=== PATIENT | male | born 1960 | race Caucasian/White ===

== ENCOUNTER → 2017-01-08 | Day surgery (SDC) | payer OTHER ==
[~2017-01-08] VITALS: Ht 200.7 cm; Wt 108.9 kg
[~2017-01-08] MED LIST: 0; CEPHALEXIN500 M3 PO; OXYCODONE-ACET1 EACH PO; VANCOMYCIN IV
[2017-01-08 14:29] LABS: ABSOLUTE BASOPHIL COUNT 0.1 /CUMM (0.0-0.2); ABSOLUTE EOSINOPHIL COUNT 0.1 /CUMM (0.0-0.7); ABSOLUTE GRANULOCYTE CT 5.9 /CUMM (1.4-6.5); ABSOLUTE LYMPH COUNT 1.8 /CUMM (1.2-3.4); ABSOLUTE MONOCYTE COUNT 0.9 /CUMM (0.10-0.60); BASOPHIL % 0.7 % (0.0-2.0); EOSINOPHIL % 0.8 % (0-5); GRANULOCYTE % 67.5 % (42.2-75.2); MEAN CORPUSCULAR HGB 30.7 PG (27.0-31.0); MEAN CORPUSCULAR HGB CONC 33.6 G/DL (33.0-37.0); MEAN CORPUSCULAR VOLUME 91.3 FL (80.0-94.0); MEAN PLATELET VOLUME 8.1 FL (7.4-10.4); PLATELET COUNT 165 /CUMM (130-400); RBC DISTRIBUTION WIDTH 13.6 % (11.5-14.5); RED BLOOD CELL CT 4.71 /CUMM (4.70-6.10); WHITE BLOOD CELL COUNT 8.7 /CUMM (4.8-10.8)
--- NOTE | 2017-01-08 14:35 | ED UPPER/LOWER EXTREMITY COMPL ---
History of Present Illness General Chief Complaint: General Adult Stated Complaint: S/P ELBOW SURG/SENT BY SURGEON Source: patient Exam Limitations: no limitations Vital Signs & Intake/Output Vital Signs & Intake/Output Vital Signs Date Time Temp Pulse Resp B/P Pulse O2 O2 Flow FiO2 Ox Delivery Rate 01/08 1452 99.0 80 18 130/88 100 Room Air 01/08 1246 97.3 87 16 139/90 97 Room Air Allergies Coded Allergies: Penicillins (UNKNOWN 01/08/17) Triage Note: 56 Y/O MALE STATES HE WAS SENT TO ER BY DR MONTES FOR ? SURGERY. STATES HE HAD ELBOW SURGERY ON 12/03/16 AND HAS HAD INFECTION/COMPLICATIONS SINCE. HAS HAD WOUND VAC ON/OFF WHICH WAS REMOVED ON FRIDAY - HAS BEEN BEING SEEN BY WOUND CENTER, LAST SEEN YESTERDAY. STATES ELBOW IS "WORSE". 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 Triage Nurses Notes Reviewed? yes Onset: Abrupt Duration: week(s):, constant, getting worse Timing: recent history No Modifying Factors: none HPI: 56-year-old male comes into emergency room for evaluation of pain and swelling to his left elbow. Patient had the surgery done at the end of November. Patient had a triceps tendon rupture repair performed by Dr. montes. Patient had a "hole over the wound that developed about a week after the surgery. This past week it has become secondarily infected with drainage. Patient was beeing followed by wound care and had a wound VAC placed. Symptoms have gotten worse. Patient saw orthopedic doctor today who sent him to the emergency room for further evaluation and likely surgery. Denies any fever chills vomiting symptoms. Denies any other associated symptoms currently. (CHAPO FRANK,DARSHAN) Reconcile Medications [0] LABS: WEEKLY CBC, BUN/CR, SEDIMENATION RATE, VANCOMYCIN LEVEL BEGINING 01/17/17 DIAGNOSIS: WOUND INFECTION Oxycodone HCl/Acetaminophen (Oxycodone-Acetaminophen 5-325) 5 MG-325 MG TABLET 1 TAB PO QPM PRN PAIN (Reported) [VANCOMYCIN] 1,500 MG 1 DOSE IV BID INFECTION (JAGJIT CAR,CHRISTIE) Past History Travel History Traveled to [place] past 21 day No Medical History Any Pertinent Medical History? see below for history Neurological: LYME DISEASE EENT: NONE Cardiovascular: NONE Respiratory: NONE Gastrointestinal: NONE Hepatic: NONE Renal: NONE Musculoskeletal: NONE Psychiatric: NONE Endocrine: NONE Blood Disorders: NONE Cancer(s): NONE PLEATER/Reproductive: NONE Surgical History Surgical History: non-contributory Psychosocial History What is your primary language Maldivian Tobacco Use: Current Daily Use Daily Tobacco Use Amount/Type: => 5 Cigarettes daily Family History Hx Contributory? No (DARSHAN VELÁZQUEZ) Review of Systems Review of Systems Constitutional: Reports: no symptoms. EENTM: Reports: no symptoms. Respiratory: Reports: no symptoms. Cardiovascular: Reports: no symptoms. Gastrointestinal/Abdominal: Reports: no symptoms. Genitourinary: Reports: no symptoms. Musculoskeletal: Reports: no symptoms. Skin: Reports: see HPI. Neurological/Psychological: Reports: no symptoms. Hematologic/Endocrine: Reports: no symptoms. Immunological: Reports: no symptoms. All Other Systems: Reviewed and Negative (DARSHAN VELÁZQUEZ) Physical Exam Physical Exam General Appearance: well developed/nourished, mild distress Head: atraumatic Eyes: Bilateral: normal appearance. Ears, Nose, Throat: normal ENT inspection, hearing grossly normal Neck: normal inspection Cardiovascular/Respiratory: no respiratory distress Back: normal inspection Shoulder Left: normal range of motion, normal inspection Elbow Left: erythema, warmth, joint swelling, purulentr discharge, open wound with hole and discharge Hand Left: normal inspection, normal range of motion Neurologic/Tendon: normal sensation, normal motor functions, normal tendon functions, responds to pain, no evidence tendon injury, no pulse deficit Skin: intact, normal color, warm/dry Lymphatic: no anterior cervical cass (DARSHAN VELÁZQUEZ) Progress Differential Diagnosis: arterial insufficiency, cellulitis, compartment syndrome , septic arthritis, sprain, tendon injury Plan of Care: Orders Procedure Date/time Status EXTREMETIES CULTURE 01/08 1431 Active Add-on Test (ER Only) 01/08 1426 Active C-REACTIVE PROTEIN 01/08 1400 Complete BLOOD CULTURE 01/08 1355 Active CBC WITHOUT DIFFERENTIAL 01/08 1355 Complete BASIC METABOLIC PANEL 01/08 1355 Complete Laboratory Tests 01/08/17 1400: Anion Gap 10, Estimated GFR > 60, BUN/Creatinine Ratio 15.7, Glucose 87, Calcium 9.2, C-Reactive Prot, Quant 0.6, CBC w Diff NO MAN DIFF REQ, RBC 4.71, MCV 91.3, MCH 30.7, RDW 13.6, MPV 8.1, Gran % 67.5, Lymphocytes % 20.7, Monocytes % 10.3 H, Eosinophils % 0.8, Basophils % 0.7, Absolute Granulocytes 5.9, Absolute Lymphocytes 1.8, Absolute Monocytes 0.9 H, Absolute Eosinophils 0.1, Absolute Basophils 0.1, PUBS MCHC 33.6 Microbiology 01/08 1431 EXTREMITIE: Culture & Sensitivity - ORD 01/08 1431 EXTREMITIE: Gram Stain - ORD 01/08 1400 BLOOD: Blood Culture - RECD 01/08 1400 BLOOD: Blood Culture - RECD Departure Departure Disposition: STILL A PATIENT Condition: Stable Clinical Impression Primary Impression: Cellulitis and abscess of unspecified site Secondary Impressions: Post-operative infection Referrals: JORGE LACEY MD (PCP/Family) Departure Forms: Customer Survey General Discharge Information Comments 01/08/2017 5:32:[address] Montes was consult. He is going to bring the patient to the OR tonight for an incision and drainage and washout. No antibiotics at this time. OR/GI Note Spoke With: MICHAEL CAR,LANDY ED Treatment Decision: CRIS PRICE requires urgent operative management or an emergent procedure that cannot be performed in the Emergency Room setting. Transport To: [facility] (DARSHAN VELÁZQUEZ) PA/ELECTRONIC CALIBRATION TECHNICIAN Co-Sign Statement Statement: ED Attending supervision documentation- [] I saw and evaluated the patient. I have also reviewed all the pertinent lab results and diagnostic results. I agree with the findings and the plan of care as documented in the PA's/ELECTRONIC CALIBRATION TECHNICIAN's documentation. [X] I have reviewed the ED Record and agree with the PA's/ELECTRONIC CALIBRATION TECHNICIAN's documentation. [] Additions or exceptions (if any) to the PAs/ELECTRONIC CALIBRATION TECHNICIAN's note and plan are summarized below: [] (JAGJIT CAR,CHRISTIE)
[2017-01-08 14:52] VITALS: BP 130/88
--- NOTE | 2017-01-08 21:02 | Operative Report ---
Operative/Inv Procedure Report Surgery Date: 01/08/17 Name of Procedure: 1) I&D left elbow wound: Skin, subcutaneous tissue, deep fascia, and bone. 2) Wound revision including excision of areas of skin breakdown. 3) Application of wound VAC. Pre-Operative Diagnosis: Wound infection left elbow. Post-Operative Diagnosis: Same. Estimated Blood Loss: scant Surgeon/Hide Inspector: MD MICHAEL / MD ARIANNA Anesthesia: laryngeal mask airway Monitors: EKG, blood pressure monitoring, oxygen saturation. IV Fluids: Lactated Ringer's. Implants: None. Urine Output: None. Drains: Wound VAC applied over the suture line (Adaptic over the suture line). Specimens: Portions of skin and subcutaneous tissue and fascia and tendon sent to pathology for histopathological evaluation. Microbiology: Deep wound culture sent to microbiology for Gram stain, culture and sensitivity. Tourniquet: 69 minutes at 275 mmHg. Complications: None known. Condition: Stable. 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 Interestingly, that area of skin breakdown did not involve the actual incision itself and was located about 1.5-2 cm medial to the actual prior surgical incision. The wound appeared to extend quite deeply at that time but was not draining and did not show signs of infection. We tried to manage the soft tissue loss and wound breakdown with wound VAC therapy and with having the patient treated at the [facility] wound care facility. Earlier this week the patient was seen in the office and was noted to have a punctate hole in the skin which was draining purulent material. This punctate hole was located about 3 cm proximal to the original area of skin breakdown and was also offset by a couple of centimeters medial to the prior now very well-healed maturing surgical scar. I expressed that wound and got a couple of drops of purulent drainage followed by blood. The patient was seen per protocol that same day at the [facility] wound care facility after seeing me in the office. The wound was apparently cleaned and then packed. The patient was showering the next day and found that he had lost the wound packing. He therefore went back to the wound care clinic at [facility] where the staff felt that the wound was worsening with increasing fluctuance and drainage and some slight increase in erythema of the skin at the posterior elbow. This was felt to be consistent with a developing progressing infection. Wound cultures were taken. The patient was started on Keflex empirically and was discharged from the wound care facility with instructions to see me today for follow-up. The patient was seen in my office earlier today where I agreed with the assessment of the wound care clinic. I did recommend to the patient that we perform an I&D of the elbow wound with exploration. I did indicate to the patient that I was hopeful that we might be able to perform an I &D of the wound and leave the braided polyester suture material holding the tendon in place and hopefully suppress infection with IV antibiotics allowing his tendon additional time to try to heal back to bone. He was advised that I was hesitant to recommend removing the FiberWire suture material which was the only thing really holding the tendon to bone initially following his repair as I thought that he did not have adequate time for the tendon to predictively heal back to bone. The basic plan was therefore to perform an I&D of the wound and then start the patient on IV antibiotics and take him back electively for removal of the FiberWire suture in about 1 month unless he healed completely without signs of any lingering infection. All the patient's questions were answered at length. He did wish to move forward with surgery today as was recommended. He was sent over to the emergency room at [facility] and arrangements were made for him to undergo surgery this evening. Operative/Procedure Note Note: The patient was brought to the operating room and placed on the operating room table in the supine position. Gen. anesthesia was induced by the anesthesia team. Dressings on the patient's left elbow were taken down. The elbow soft tissues were inspected. There was a small amount of study purulent drainage coming from the small pinhole wound described above. The larger wound which was the initial wound showed skin margins that looked chronically smoothed and not fresh. The deeper tissues at the larger wound did show some signs of filling in that was difficult to tell what type of tissue was in the base of the wound. All bony prominences were well padded. No antibiotics were given. The left upper extremity was then prepped and draped in the usual sterile fashion, in this case using an iodine prep. The original skin wound-scar was marked out on the skin with a skin marker. The 2 new wounds were also marked around the margins with a skin marker. I evaluated where to place the surgical incision and my initial impression was that I would go through the original scar wound and elevate flaps medially and laterally as needed including undermining the medial flap to get over to the medial wounds. I was fearful of dissecting out the wounds individually or dissecting with an incision connecting the wounds for fear that the tissue bridge between these wounds to the original skin wound and scar would be inadequate and devitalized due to loss of vascularity which would contribute to wound breakdown and ongoing wound healing problems. A well-padded sterile tourniquet was applied to the proximal portion of the left arm. The left upper extremity was then wrapped with an Esmarch bandage and then exsanguinated. The tourniquet was then inflated to a pressure 275 mmHg. The majority of the original skin incision was reopened with a #15 scalpel blade. Sharp dissection was continued down through skin and subcutaneous tissues. I did encounter a limited amount of devitalized tissue as I dissected deep to the skin through the subcutaneous tissues down to the underlying tendon. I started to elevate the medial skin flap trying to elevate the flap as thick as possible. A layer of dense to fibrinous exudate was adherent to the undersurface of the deep subcutaneous tissue. This all looked abnormal and I did need to sharply debride this layer of fibrinous exudate as well as areas of fat necrosis and devitalized fat. I was eventually able to undermine and elevate the medial skin flap as far as the above-noted wounds 2 and slightly medial to this as well. In doing this a couple of the FiberWire suture lengths were cut. I therefore needed to remove FiberWire material as best as possible to get the braided polyester material out of the infected bed. There was some devitalization and breakdown of some of the reattached the triceps tendon. This required debridement. Ultimately debridement required excision of about 1/4-1/3 of the previously repaired triceps tendon. There was some tendon still attached to the bone medially that had seemed to have scarred down to the bone. There was a much more significant amount of tendon still attached to bone for the laterally. Removal of the suture material did also include removal of his much suture within the medial bone tunnel drill hole that I could remove. I then curetted out this bone tunnel to clean out debris. Additional debridement of deep subcutaneous tissue with fat necrosis and deep fascia and scar tissue and tendon was performed as needed. The dorsal surface of the olecranon process was debrided sharply with a scalpel as well as with curettage and rongeurs. This created a bleeding bone bed. The prior area of potential space for infection was noted coming up under the anterior surface of the medial one third of the triceps tendon. This area was cleaned out with curettes did not look overtly devitalized. I elected to retain the majority of the more lateral attached triceps tendon which appeared to be generally sealed down to bone very nicely and which also appeared to be sealed with scar tissue to the deep fascia and subcutaneous tissues without dissection of infection into any of these tissues. I felt that these more lateral tissues were likely viable and not infected and I therefore left them in place. We now needed to determine what to do with the medial wounds. We ultimately elected to excise the wounds along with the intervening skin bridge. This was accomplished with a scalpel trying to taper the skin dissection so that a gentle elliptical wound defect was created. The remaining medial flap did need to be mobilized slightly further by undermining full-thickness as best as possible. I did also now elect to undermine the deep subcutaneous tissue with overlying skin flap laterally slightly to allow for primary wound closure. We appreciated that the wound could be approximated relatively easily by extending the elbow as compared to flexing the elbow. Of note prior to keeping the elbow extended we did gently flex and extend the elbow and it did seem that the patient's triceps tendon remained stably attached to the bone at its lateral attachment site through an arc of elbow flexion to about 70. We were hesitant to flex the elbow any further than this. With the skin margins now undermined and mobilized irrigated skin and the subcutaneous tennis tissues and deep fascia along with tendon and bone copiously with the pulsatile lavage. Once he was satisfied with the irrigation and lavage of the soft tissues we turned our attention to wound closure. We elected to place some #2 monofilament absorbable suture deeply to take tension off of the skin margins. The sutures were placed in interrupted buried fashion and did seem to generally approximate the skin flaps nicely without undue tension. We next approximated the skin margins using 2-0 monofilament nonabsorbable suture material trying to rose the skin margins as best as possible. Once this was accomplished the wound was washed and dried. The tourniquet was deflated. Hemostasis was achieved to some degree with manual pressure but we did elect to allow the wound to bleed slightly with the thoughts that vascularity would be good to help with healing and clearing infection. The wound dressing consisted of application of an Adaptic nonadherent dressing over the suture line. We next applied the sponges for the wound VAC over the Adaptic nonadherent dressing making sure that none of the sponge material for the wound VAC was in contact with the skin. We secured the sponge material in place with a wound VAC dressings per protocol. We next set the wound VAC tubing up to suction. Once the wound VAC showed good suction the tubing was clamped off so that the patient would be able to be discharged home and hook the wound VAC tubing up to the home unit that he did already have at home. Dressings included abundant fluffed gauze dressing over and about the elbow. This was followed by web roll cast padding wrapped from the axilla proximally to the wrist distally or maintaining the elbow in extension. The layer of Webril cast padding material was labral and thick. We next applied a 4 inch fiberglass posterior splint to the elbow and held this in place with Eldon bandages allowing the splint to set up with the elbow in about 20 of elbow flexion. The wound VAC tubing was taped to the superficial layer of Eldon bandages. The patient was then awakened from general anesthesia. He was transferred to the hospital stretcher and then brought to the recovery room in stable condition having tolerated the procedure well.
== END ==
LOC: ERH 12:40 → STS 18:00
PROVIDERS: Physician Assistant Medical
DX: T81.4XXA Infection following a procedure, initial encounter (principal); B99.9 Unspecified infectious disease; K21.9 Gastro-esophageal reflux disease without esophagitis; F17.200 Nicotine dependence, unspecified, uncomplicated
CPT/HCPCS: 87070; 87075; 87077; 87140; 87143; 87149; 87184; 87040; 87071; 87147; 88304; 96374; J0131; J1170; J2175; J2250; J2405; J3010

== ENCOUNTER 2017-01-10 12:44 | Emergency (ER) | payer OTHER ==
[~2017-01-10] VITALS: Ht 200.7 cm; Wt 108.9 kg
[~2017-01-10 12:44] MED LIST changes: -0; -VANCOMYCIN IV
--- NOTE | 2017-01-10 13:34 | ED GENERAL ADULT ---
History of Present Illness General Chief Complaint: General Adult Stated Complaint: SENT BY DR. MONTES, AWARE PER FAMILY Source: patient, family, old records Exam Limitations: no limitations Vital Signs & Intake/Output Vital Signs & Intake/Output Vital Signs Date Time Temp Pulse Resp B/P Pulse O2 O2 Flow FiO2 Ox Delivery Rate 01/10 1547 97.3 78 16 132/90 99 Room Air 01/10 1251 97.0 72 18 139/94 97 Room Air Allergies Coded Allergies: Penicillins (UNKNOWN 01/08/17) Reconcile Medications [0] LABS: WEEKLY CBC, BUN/CR, SEDIMENATION RATE, VANCOMYCIN LEVEL BEGINING 01/17/17 DIAGNOSIS: WOUND INFECTION Oxycodone HCl/Acetaminophen (Oxycodone-Acetaminophen 5-325) 5 MG-325 MG TABLET 1 TAB PO QPM PRN PAIN (Reported) [VANCOMYCIN] 1,500 MG 1 DOSE IV BID INFECTION Triage Note: SENT IN BY DR MONTES TO FIGURE OUT WHAT ANTIBIOTICS TO PRESCRIBE FOR ARM INFX. HAD WASH OUT SX FRIDAY TO LEFT ARM WHICH IS COVERED AND COBAN APPLIED AT TIME OF ARRIVAL WITH WOUND DRAIN. CEZAR PICC PLACED JUST PRIOR TO ARRIVAL. PAIN /10 AT THIS TIME. ARRIVES AFEBRILE 97.0 IN TRIAGE. Triage Nurses Notes Reviewed? yes Onset: Abrupt Duration: day(s): (1), constant Timing: recent history Injury Environment: home Severity: mild Severity Numbers: 3 No Modifying Factors: none Associated Symptoms: denies HPI: [id number] male who presents emergency room sent in by his orthopedist Dr. Montes. The patient had a PICC line placed to his right upper extremity this morning and was sent to begin vancomycin 1.5 g twice a day however due to insurance reasons he was unable to set this up as an outpatient was sent to the ER for further workup. The patient had his infected surgical wound washed out in the operating room [address] Montes. He's been taking Percocet for pain and has not been on antibiotics since. He denies any fevers or chills. He has not taken his dose this morning of pain medicine which she now reports as moderate and aching nonradiating. He denies any fevers chills or associated symptoms chest pain or shortness of breath (KARISSA FRANK,EFREN) Past History Travel History Traveled to [place] past 21 day No Medical History Any Pertinent Medical History? 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 No (EFREN WOODWARD) Review of Systems Review of Systems Constitutional: Reports: see HPI. All Other Systems: Reviewed and Negative Comments Review of systems: See HPI, All other systems negative. Constitutional, no chills no fever, no malaise HEENT: No visual changes no sore throat no congestion Cardiovascular: No chest pain , no palpitation Skin, see HPI Respiratory: No dyspnea no cough no sputum GI: No nausea no vomiting, no diarrhea, no bloating/constipation : No dysuria Muscle skeletal: No joint pain, no back pain, no neck pain, Neurologic: No numbness no headache Psych: No stress Heme/endocrine: No bruising no bleeding Immunology: No lymphadenopathy (EFREN WOODWARD) Physical Exam Physical Exam General Appearance: well developed/nourished, no apparent distress, alert, awake Comments: Well-developed well-nourished patient in no apparent distress. HEENT: Atraumatic, extraocular motion intact Neck: Supple, FROM Back: FRO Cardiovascular: Regular rate and rhythms no murmurs rubs or gallops, Respiratory: Chest nontender.There were no bony deformities, no asymmetry. No respiratory distress. Patient speaking in full complete sentences. Breath sounds clear to auscultation bilaterally: NO W/R/R Extremities: full range of motion splint noted to the left upper extremity, PICC line in place to the right upper extremity Neuro: Alert and oriented x3 Skin: Warm & dry;No appreciable rash on exposed skin Psych: Mood affect normal, normal memory normal judgment. Core Measures ACS in differential dx? No CVA/TIA Diagnosis: No Severe Sepsis Present: No Septic Shock Present: No (EFREN WOODWARD) Progress Differential Diagnoses I considered the following diagnoses in my evaluation of the patient: Sepsis abscess osteomyelitis Plan of Care: Current Medications Sig/Isidra Start time Last Medication Dose Stop Time Status Admin Vancomycin HCl 1,500 MG ONCE ONE 01/10 1315 CAN 01/10 1316 case d/w dr wei who spoke with dr montes who was unable to set up home infusions, case d/w case management Case discussed with Dr. loera-who agrees with plan vancomycin 1500 mg twice a day for 4-6 weeks patient will require weekly CBCs BUN/creatinine sedimentation rate and vanco levels Case was discussed with case management who is able to set up [facility] to come out to the patient's house tomorrow to begin Vanco infusions, the patient and his family feel comfortable with this plan information was faxed the [facility] instructions were provided (KARISSA FRANK,EFREN) Diagnostic Imaging: Viewed by Me: Radiology Read. Discussed w/RAD: Radiology Read. Radiology Impression: PATIENT: CRIS PRICE PRESENT AGE: 56 PATIENT ACCOUNT NO: [id number] : 61 LOCATION: [facility] ORDERING PHYSICIAN: EFREN FRANK SERVICE DATE: 01/10/17 EXAM TYPE: RAD - XRY- PORTABLE CHEST XRAY EXAMINATION: XR PORTABLE CHEST CLINICAL INFORMATION: Confirm PICC placement. COMPARISON: 01/10/2017 TECHNIQUE: Portable AP view of the chest was obtained. FINDINGS: Right-sided PICC is noted with tip terminating in the mid to distal SVC. Cardiomediastinal silhouette is within normal limits. Lungs are clear. No pleural effusion or pneumothorax. No acute osseous abnormality. IMPRESSION: Right-sided PICC with tip terminating in the mid/distal SVC. 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 <Electronically signed in Other Vendor System> SIGNED BY: LEESA DIAS DO 01/10/17 1405 Initial ED EKG: none (EFREN WOODWARD) Departure Departure Time of Disposition: 154 Disposition: HOME OR SELF CARE Condition: Stable Clinical Impression Primary Impression: Wound infection after surgery Referrals: JORGE LACEY MD (PCP/Family) EVE CAR,ANAY Bello Additional Instructions: As discussed [facility] will call you this evening to set up a time tomorrow. Return with any concerns Departure Forms: Customer Survey General Discharge Information Prescriptions: Current Visit Scripts [VANCOMYCIN] 1 DOSE IV BID 7 Days [0] (EFREN WOODWARD) PA/VP OUTCOMES Co-Sign Statement Statement: ED Attending supervision documentation- [] I saw and evaluated the patient. I have also reviewed all the pertinent lab results and diagnostic results. I agree with the findings and the plan of care as documented in the PA's/VP OUTCOMES's documentation. [X] I have reviewed the ED Record and agree with the PA's/VP OUTCOMES's documentation. [] Additions or exceptions (if any) to the PAs/VP OUTCOMES's note and plan are summarized below: [] (LYRIC WEI DO) Critical Care Note Critical Care Note Critical Care Time: non-applicable (EFREN WOODWARD)
--- NOTE | 2017-01-10 14:05 | RADIOLOGY REPORT ---
EXAMINATION: XR PORTABLE CHEST CLINICAL INFORMATION: Confirm PICC placement. COMPARISON: 01/10/2017 TECHNIQUE: Portable AP view of the chest was obtained. FINDINGS: Right-sided PICC is noted with tip terminating in the mid to distal SVC. Cardiomediastinal silhouette is within normal limits. Lungs are clear. No pleural effusion or pneumothorax. No acute osseous abnormality. IMPRESSION: Right-sided PICC with tip terminating in the mid/distal SVC.
[2017-01-10] MEDS ORDERED: VANCOMYCIN IV (15:34)
[2017-01-10] MEDS ORDERED: 0 (15:34)
[2017-01-10 15:47] VITALS: BP 132/90
== END 2017-01-10 16:15 ==
LOC: ERH 12:44
DX: T81.4XXA Infection following a procedure, initial encounter (principal)
CPT/HCPCS: 96374; J3370; J7040